=== PATIENT | female | born 1975 | race Caucasian/White ===

== ENCOUNTER 2017-01-29 12:32 | Inpatient (IN) | payer OTHER ==
[~2017-01-29] VITALS: Ht 157.5 cm; Wt 95.7 kg
[2017-02-02] MEDS ORDERED: METOPROLOL TARTRATE 25 MG TAB PO PRN (07:30)
[2017-02-02] MEDS: SODIUM CHLORID 0.9% 500 ML IV SCH (07:30)
[2017-02-02] MEDS ORDERED: ACETAMINOPHEN 1000 MG/100 ML VIAL IV SCH (07:30)
[2017-02-02] MEDS ORDERED: LACTATED RINGER'S 1000 ML IV SCH (07:30)
[2017-02-02] MEDS ORDERED: metroNIDAZOLE 500 MG INJ 100 ML IV SCH (07:30)
[2017-02-02] MEDS ORDERED: SCOPOLAMINE 1.5 MG PATCH T-DERMAL SCH (07:30)
[2017-02-02] MEDS ORDERED: APREPITANT 40 MG CAP PO SCH (07:30)
[2017-02-02] MEDS ORDERED: ceFAZolin 2 GM PREMIX 50 ML IV SCH (07:30)
[2017-02-02] MEDS ORDERED: INSULIN HUMAN REGULAR 1,000 UNITS/10 ML VIAL SQ PRN (07:30)
[2017-02-02] MEDS ORDERED: ERGO1CAP10 PO (07:57)
[2017-02-02] MEDS ORDERED: PANT40TA3 PO (07:57)
[2017-02-02] MEDS ORDERED: METF500T PO (07:57)
[2017-02-02] MEDS ORDERED: PRAV40TA2 PO (07:57)
[2017-02-02] MEDS: ONDANSETRON HCL 4 MG/2 ML VIAL IV PUSH SCH ×2 (07:58→20:19)
[2017-02-02 07:59] VITALS: BP 129/79; PULSE 70; RESP 20; TEMP 98.2; O2SAT 98
[2017-02-02] MEDS ORDERED: DEXAMETHASONE SOD PHOS 4 MG/ML VIAL ONE (10:11)
[2017-02-02] MEDS ORDERED: MIDAZOLAM HCL 2 MG/2 ML VIAL ONE (10:11)
[2017-02-02] MEDS ORDERED: FAMOTIDINE 20 MG/2 ML VIAL ONE (10:11)
[2017-02-02] MEDS ORDERED: fentaNYL CITRATE 250 MCG/5 ML AMP ONE ×2 (10:11→12:23)
[2017-02-02] MEDS ORDERED: PROPOFOL 200 MG/20 ML AMP IV ONE (10:38)
[2017-02-02] MEDS ORDERED: NEOSTIGMINE 3 MG/3 ML SYR IV ONE (10:38)
[2017-02-02] MEDS ORDERED: ePHEDrine/NS 25 MG/5 ML SYR IV ONE (10:38)
[2017-02-02] MEDS ORDERED: ONDANSETRON HCL 4 MG/2 ML VIAL IV PUSH ONE (10:38)
[2017-02-02] MEDS ORDERED: BUPIVACAINE/EPINEPHRINE 0.25% 50 ML VIAL INFIL ONE (11:10)
[2017-02-02] MEDS ORDERED: METHYLENE BLUE 10 MG/ML VIAL NG ONE (11:35)
[2017-02-02] MEDS ORDERED: DO NOT ADM ANY ANTICOAGULANT DRUGS XX PRN (12:21)
[2017-02-02] MEDS ORDERED: *HYDROmorphone PF 1 MG VIAL PERIprocedural Use ONLY ONE (12:53)
[2017-02-02] MEDS ORDERED: D5-1/2 NS + KCL 20 MEQ INJ 1,000 ML ONE (13:21)
[2017-02-02] MEDS ORDERED: HYDROmorphone HCL PCA 6 MG/30 ML IV ONE (13:21)
[2017-02-02] MEDS: D5-1/2 NS + KCL 20 MEQ INJ 1,000 ML IV SCH (14:00)
[2017-02-02] MEDS ORDERED: NALOXONE HCL 0.4 MG/ML AMP IV PRN (15:00)
[2017-02-02] MEDS ORDERED: HYDROmorphone HCL PCA 6 MG/30 ML IV SCH (15:00)
[2017-02-02] MEDS ORDERED: ENOXAPARIN SODIUM 40 MG/0.4 ML SYRINGE ONE (16:39)
[2017-02-02] MEDS: ENOXAPARIN SODIUM 40 MG/0.4 ML SYRINGE SQ SCH (17:14)
[2017-02-02] MEDS: ceFAZolin 2 GM PREMIX 50 ML IV SCH (17:30)
[2017-02-02] MEDS: METRONIDAZOLE 500 MG/100 ML ISONTONIC SOLN IV SCH (17:40)
[2017-02-02 18:00] VITALS: BP 135/67; PULSE 61; RESP 12; TEMP 95.6; O2SAT 99
[2017-02-02 20:00] VITALS: BP 108/67; PULSE 68; RESP 20; TEMP 96; O2SAT 96
[2017-02-02] MEDS: PCA - TOTAL MG DILAUDID DELIVERED PER SHIFT SCH (20:20)
[2017-02-03] VITALS: BP 108/57; PULSE 53; RESP 20; TEMP 96; O2SAT 96
[2017-02-03] MEDS: SODIUM CHLORID 0.9% 500 ML IV SCH (00:10)
[2017-02-03] MEDS: ceFAZolin 2 GM PREMIX 50 ML IV SCH ×2 (00:47→08:54)
[2017-02-03] MEDS: D5-1/2 NS + KCL 20 MEQ INJ 1,000 ML IV SCH ×3 (00:47→14:42)
[2017-02-03] MEDS: METRONIDAZOLE 500 MG/100 ML ISONTONIC SOLN IV SCH ×2 (00:48→08:54)
[2017-02-03 04:00] VITALS: BP 109/57; PULSE 55; RESP 19; TEMP 96.8; O2SAT 95
[2017-02-03] MEDS: PCA - TOTAL MG DILAUDID DELIVERED PER SHIFT SCH ×2 (04:54→14:00)
[2017-02-03 08:00] VITALS: BP 124/58; PULSE 57; RESP 17; TEMP 96.7; O2SAT 97
[2017-02-03 12:00] VITALS: BP 143/65; PULSE 53; RESP 18; TEMP 97.4; O2SAT 96
[2017-02-03 14:00] VITALS: RESP 17
[2017-02-03] MEDS ORDERED: HYDROmorphone HCL 2 MG TAB PO PRN (14:45)
[2017-02-03 15:46] VITALS: O2SAT 96
--- NOTE | 2017-02-03 15:50 | HHI.PR ---
Subjective Subjective Notes c/o pain on inspiration no cp Objective Vitals/I&O Vital Signs Date Time Temp Pulse Resp B/P Pulse Ox O2 Delivery O2 Flow Rate FiO2 02/03/17 15:46 96 21 02/03/17 14:00 17 02/03/17 12:00 97.4 53 143/65 02/02/17 17:40 Nasal Cannula 2 Abdomen: Post-op tenderness Wound Wound : Appearance: Clean & Dry A/P Assessment and Plan s/p lap sleeve POD # 1 Doing well d/c later today Misael Gayle MD Feb 03, 2017 15:50
[2017-02-03] MEDS ORDERED: metFORMIN HCL 500 MG TAB PO SCH (18:00)
[2017-02-03] MEDS: ENOXAPARIN SODIUM 40 MG/0.4 ML SYRINGE SQ SCH (18:10)
[2017-02-03] MEDS: ONDANSETRON HCL 4 MG/2 ML VIAL IV PUSH SCH (18:12)
--- NOTE | 2017-02-05 07:15 | MP ---
cc: MILENA GAYLE DATE OF 1975 DATE OF OPERATION 02/02/2017 PREOPERATIVE DIAGNOSIS Severe obesity with a BMI of 39, complicated by type 2 diabetes and hyperlipidemia. POSTOPERATIVE DIAGNOSIS Severe obesity with a BMI of 39, complicated by type 2 diabetes and hyperlipidemia. PROCEDURE Laparoscopic vertical sleeve gastrectomy over a 36-[place] Vi[employer] bougie. SURGEON Milena Gayle MD ANESTHESIA General endotracheal anesthesia. ESTIMATED BLOOD LOSS Scant. FINDINGS Fatty liver. SPECIMENS None. COMPLICATIONS None. PROCEDURE IN DETAIL The patient was brought to the operating room and placed on the operating table in supine position, bilateral sequential inflation device placed on lower extremities. General anesthesia was instituted. Antibiotics was initiated. The abdomen was prepped and draped sterilely. A point 15 cm distal to the xiphoid in the midline was anesthetized with 0.25% Marcaine with epinephrine. A skin incision was made, 5-mm OptiView port placed under direct vision and pneumoperitoneum created. Under direct vision, three 5-mm left upper quadrant, a 15-mm right upper quadrant, 5-mm right upper quadrant ports placed. Prior to placement of all ports the skin and peritoneum were anesthetized with 0.25% Marcaine with epinephrine. The patient was placed in reverse Trendelenburg position left side up, the Lanie-Flex retractor was placed. The left lobe of the liver was retracted. The vasculature along the greater curvature of the stomach was using harmonic scalpel starting a distance 5-cm proximal to the pylorus and carried towards the angle of His. The angle of His was taken down bluntly. Posterior ligamentous attachments were sharply . A 36-[employer] [place] Vi[employer] bougie was placed at the start of the case, was placed on suction. Division of the stomach started 5 cm proximal to the pylorus and carried towards the angle of His to completely excise approximately 80% of the stomach. This was performed using an [place] Flex stapler at the pylorus. The first firing was with a black load, followed by a green load and four gold loads. All staple loads were reinforced with SeamGuard. A distance of 2 cm was left from the angle incisura and the staple line and a distance of 1 cm left from the GE junction and the staple line. The pylorus was then occluded, methylene blue tinged saline was instilled. There was no evidence of extravasation. The gastrocolic ligament was then sutured to the posterior leaflet of the SeamGuard using a 2-0 Vicryl suture in a running manner. Bleeding points were controlled with Evicel. The excised stomach was removed from the peritoneal cavity through the 15-mm port site in an Endopouch. The fascia at the 15-mm port site was approximated with 0 Vicryl suture. The CO2 was then released, all ports were removed, all skin incisions closed with 4-0 Monocryl. The abdominal wall was cleaned. A sterile dressing was placed. The patient was awakened and taken to the recovery room. MD MARITZA Benedict/GONSALO /9:31 AM /7:11 AM
== END 2017-02-03 18:51 | disposition home or self-care (01) | DRG 621 ==
LOC: HSDI 02-02 06:26 → N07A 02-02 18:01
PROVIDERS: ADMIT Surgery; ATTEND Surgery
PROC: 0DB64Z3 Excision of Stomach, Percutaneous Endoscopic Approach, Vertical (ICD-10-PCS; principal; 2017-02-02 10:43)
DX: E66.01 Morbid (severe) obesity due to excess calories (principal); K76.0 Fatty (change of) liver, not elsewhere classified; E11.9 Type 2 diabetes mellitus without complications; E78.5 Hyperlipidemia, unspecified; Z68.39 Body mass index [BMI] 39.0-39.9, adult; I10 Essential (primary) hypertension; K21.9 Gastro-esophageal reflux disease without esophagitis
CPT/HCPCS: J0131; J0690; J1100; J1170; J1650; J2250; J2405; J2710; J3010; J3480; J7120; J8501